=== PATIENT | male | born 1990 | race Caucasian/White ===

== ENCOUNTER 2018-12-31 16:15 | Emergency (ER) | payer SELFPAY ==
[~2018-12-31] VITALS: Ht 172.7 cm; Wt 87.2 kg
[2018-12-31 16:26] VITALS: BP 127/85
[2018-12-31] MEDS ORDERED: HYDROcodone/APAP 5/325 TABLET ONE (16:58)
[2018-12-31] MEDS ORDERED: HYDROcodone/APAP 5/325 TABLET PO ONE (17:00)
== END 2018-12-31 17:41 | disposition home or self-care (01) ==
LOC: ED 17:05
DX: S82.432A Displaced oblique fracture of shaft of left fibula, initial encounter for closed fracture (principal); F17.200 Nicotine dependence, unspecified, uncomplicated; W01.0XXA Fall on same level from slipping, tripping and stumbling without subsequent striking against object, initial encounter; Y93.89 Activity, other specified; Y92.410 Unspecified street and highway as the place of occurrence of the external cause; Y99.8 Other external cause status
CPT/HCPCS: 29515; 99283